=== PATIENT | female | born 1980 | race Caucasian/White ===

== ENCOUNTER 2020-11-14 06:26 | Emergency (ER) | payer OTHER, SELFPAY ==
[2020-11-14] MEDS ORDERED: Ketorolac Tromethamine 30 MG/ML VIAL ONE (06:51)
== END 2020-11-14 07:50 | disposition home or self-care (01) ==
LOC: EDBD 06:26 → NAV ERS 06:26
DX: S20.212A Contusion of left front wall of thorax, initial encounter (principal); F41.9 Anxiety disorder, unspecified; Z87.891 Personal history of nicotine dependence; X58.XXXA Exposure to other specified factors, initial encounter
CPT/HCPCS: 93005; 96374; J1885